=== PATIENT | female | born 1960 ===

== ENCOUNTER → 2018-07-14 | Outpatient (CLI) | payer OTHER | END | disposition home or self-care (01) | LOC: CFH 08:50 | PROVIDERS: ATTEND Registered Nurse | DX: J96.11 Chronic respiratory failure with hypoxia (principal) | CPT/HCPCS: 71250 ==

== ENCOUNTER → 2018-11-06 | Outpatient (CLI) | payer OTHER | END | disposition home or self-care (01) | LOC: CFH 14:44 | PROVIDERS: ATTEND Family Medicine | DX: N64.4 Mastodynia (principal); Z80.3 Family history of malignant neoplasm of breast | CPT/HCPCS: 77066 ==

== ENCOUNTER 2021-08-25 05:26 | Inpatient (IN) | payer BC, MEDICARE ==
[~2021-08-25] VITALS: Ht 170.2 cm; Wt 132.4 kg
[2021-08-27 18:05] VITALS: BP 160/100
== END 2021-08-27 18:20 | disposition home or self-care (01) | DRG 660 ==
LOC: INTOOBSV 05:26 → ORIP 05:26 → OBSVTOIN 05:26 → 4NE 15:16
PROVIDERS: ADMIT Student in an Organized Health Care Education/Training Program; ATTEND Student in an Organized Health Care Education/Training Program
PROC: 0TB04ZZ Excision of Right Kidney, Percutaneous Endoscopic Approach (ICD-10-PCS; principal; 2021-08-25)
PROC: 8E0W4CZ Robotic Assisted Procedure of Trunk Region, Percutaneous Endoscopic Approach (ICD-10-PCS; 2021-08-25)
DX: N28.89 Other specified disorders of kidney and ureter (principal); Z68.42 Body mass index [BMI] 45.0-49.9, adult; E66.01 Morbid (severe) obesity due to excess calories; Z20.822 Contact with and (suspected) exposure to COVID-19; Z90.5 Acquired absence of kidney